=== PATIENT | female | born 1945 | race Caucasian/White ===

== ENCOUNTER 2018-06-04 00:10 | Inpatient (IN) | payer MEDICARE, OTHER ==
[~2018-06-04] VITALS: Ht 170.2 cm; Wt 108.4 kg
[2018-06-04] MEDS ORDERED: ASPIRIN 81 MG CHEW TAB PO STA (00:20)
[2018-06-04] MEDS: METOPROLOL TARTRATE INJ 1 MG/ML VIAL IV SCH ×2 (00:45→01:20)
[2018-06-04 01:06] LABS: BASOPHILS % 0.4 % (0.0-1.0); EOSINOPHILS # (AUTO) 0.3 (0.0-0.4); EOSINOPHILS % 2.7 % (0.0-6.0); HEMATOCRIT 36.4 % (34.2-44.1); HEMOGLOBIN 11.8 g/dL (12.0-16.0); LYMPHOCYTES # (AUTO) 4.6 (1.0-3.2); LYMPHOCYTES % 42.1 % (18.0-39.1); MEAN CORPUSCULAR HEMOGLOBIN 27.6 pg (28-32); MEAN CORPUSCULAR HGB CONC 32.4 g/dL (31-35); MEAN CORPUSCULAR VOLUME 85.2 fL (81-99); MONOCYTES % 9.4 % (4.4-11.3); NEUTROPHILS # (AUTO) 4.9 (2.1-6.9); NEUTROPHILS % 44.9 % (38.7-80.0); PLATELET COUNT 316 x10e3/uL (140-360); RED BLOOD COUNT 4.27 x10e6/uL (3.6-5.1); RED CELL DISTRIBUTION WIDTH 15.3 % (11.7-14.4)
[2018-06-04 01:10] LABS: INR 0.86; PROTHROMBIN TIME 12.5 seconds (11.9-14.5)
[2018-06-04 01:11] LABS: PARTIAL THROMBOPLASTIN TIME 28.4 seconds (23.8-35.5)
[2018-06-04 01:17] LABS: ALANINE AMINOTRANSFERASE 25 IU/L (0-55); ALBUMIN 3.8 g/dL (3.5-5.0); ALBUMIN/GLOBULIN RATIO 1.1 (0.8-2.0); ALKALINE PHOSPHATASE 86 IU/L (40-150); BILIRUBIN,URINE NEGATIVE (NEGATIVE); BLOOD UREA NITROGEN 22 mg/dL (7-26); BUN/CREATININE RATIO 23 (6-25); CALCIUM 12.7 mg/dL (8.4-10.2); CHLORIDE 106 mmol/L (98-107); CLARITY,URINE CLOUDY (CLEAR); COLOR,URINE YELLOW (YELLOW); CREATINE KINASE 72 IU/L (29-168); CREATININE, SERUM 0.97 mg/dL (0.57-1.11); EST GLOMERULAR FILTRATION RATE 57 ML/MIN (60-); GLUCOSE 182 mg/dL (74-118); KETONES,URINE NEGATIVE (NEGATIVE); LEUKOCYTE ESTERASE ,URINE 2+ (NEGATIVE); NITRITE,URINE NEGATIVE (NEGATIVE); PROTEIN,URINE DIPSTICK NEGATIVE (NEGATIVE); SODIUM 139 mmol/L (136-145); URINE UROBILINOGEN 0.2 mg/dL (0.2 - 1)
--- NOTE | 2018-06-04 01:21 | Diagnostic Imaging Report ---
EXAM: CHEST SINGLE (PORTABLE), AP 1 view INDICATION: New A. fib RVR, shortness of breath COMPARISON: None FINDINGS: LINES/TUBES: None LUNGS: No consolidations or edema. PLEURA: No effusions or pneumothorax. HEART AND MEDIASTINUM: Normal size and contour. BONES AND SOFT TISSUES: No acute findings. IMPRESSION: No acute thoracic abnormality. Signed by: Dr. Miriam Parks M.D. on 06/04/2018 1:18 AM
[2018-06-04 01:54] LABS: WBC,URINE (MAN) 21-50 /HPF (0-5)
[2018-06-04 01:55] LABS: BACTERIA,URINE FEW /HPF; EPITHELIAL CELLS,URINE FEW /LPF; MUCUS,URINE FEW (RARE); RENAL EPITHELIAL CELLS,URINE FEW; TRANSITIONAL EPI CELLS,URINE MODERATE
[2018-06-04] MEDS ORDERED: DILTIAZEM HCL 5 MG/ML 5 ML VIAL IV STA (01:55)
[2018-06-04] MEDS ORDERED: DILTIAZEM HCL 100 ML IV SCH (02:00)
[2018-06-04] MEDS ORDERED: ENOXAPARIN SODIUM INJ 100 MG/ML SYR SC SCH (02:00)
[2018-06-04] MEDS ORDERED: SODIUM CHLORIDE 0.9% 500ML 500 ML ONE (02:35)
[2018-06-04] MEDS ORDERED: SODIUM CHLORIDE 0.9% 1000ML 1,000 ML IV ONE (02:45)
[2018-06-04] MEDS ORDERED: DILTIAZEM HCL 30 MG TAB PO ONE (03:00)
[2018-06-04] MEDS ORDERED: DEXTROSE 50% SYRINGE 50 ML IV PRN (03:00)
[2018-06-04] MEDS ORDERED: DILTIAZEM HCL LA 120MG 120 MG CAP PO ONE (03:00)
[2018-06-04] MEDS ORDERED: DILTIAZEM HCL ER 120 MG CAPCR PO ONE (03:01)
[2018-06-04] MEDS ORDERED: SYNTHROID100 MCG PO (03:21)
[2018-06-04] MEDS ORDERED: GLIMEPIRIDE2 MG PO (03:21)
[2018-06-04] MEDS ORDERED: ACETAMINOPHEN325 M1 PO (03:21)
[2018-06-04] MEDS ORDERED: VITAMIN D31000 UNI1 PO (03:21)
[2018-06-04] MEDS ORDERED: CALCIUM ACETAT667 M1 PO (03:21)
[2018-06-04] MEDS ORDERED: VITAMIN B-121000 MCG PO (03:21)
[2018-06-04] MEDS ORDERED: OMEPRAZOLE40 MG PO (03:21)
[2018-06-04] MEDS ORDERED: CO Q-10200 MG PO (03:21)
[2018-06-04] MEDS ORDERED: JANUMET XR 50-1 EAC1 PO (03:21)
[2018-06-04] MEDS ORDERED: PRAVASTATIN SOD40 MG PO (03:21)
[2018-06-04] MEDS ORDERED: LISINOPRIL10 MG PO (03:21)
[2018-06-04] MEDS ORDERED: CARVEDILOL3.125 MG PO (03:21)
[2018-06-04 03:27] LABS: CARBON DIOXIDE 22 mmol/L (22-32)
[2018-06-04] MEDS ORDERED: ACETAMINOPHEN 325 MG TAB PO PRN ×2 (04:00→17:00)
[2018-06-04] MEDS ORDERED: ASPIRIN 81 MG CHEW TAB PO ONE (05:15)
[2018-06-04] MEDS: INSULIN REGULAR, HUMAN 100 UNIT/1 ML 3ML VIAL SQ SCH ×4 (07:30→20:30)
[2018-06-04 09:08] LABS: CREATINE KINASE 56 IU/L (29-168)
[2018-06-04 11:42] VITALS: BP 107/55
--- NOTE | 2018-06-04 13:15 | Consultation ---
DATE OF CONSULTATION: June 04, 2018 CARDIOLOGY CONSULTATION REQUESTING PHYSICIAN: Dr. Florian. REASON FOR CONSULTATION: Atrial fibrillation with rapid ventricular response. HISTORY OF PRESENT ILLNESS: This is a 72-year-old woman with history of diabetes mellitus, mitral valve prolapse and irregular heartbeat, who presented with complaints of palpitations. The patient had her ILR removed approximately one month and a half ago. She was in her usual state of health until last night when she lay down to go to sleep and she began to feel fluttering in her chest. This was associated with shortness of breath. She denied any chest pain, orthopnea or PND but does note she has had a lower extremity edema for the last few months. REVIEW OF SYSTEMS: Negative except as per HPI. PAST MEDICAL HISTORY 1. Diabetes mellitus. 2. Mitral valve prolapse. 3. History of irregular heartbeat. 4. Hypertension. 5. Hypothyroidism. 6. Hyperlipidemia. 7. GERD. PAST SURGICAL HISTORY 1. Appendectomy. 2. Cholecystectomy. 3. Lipoma removal. ALLERGIES 1. PENICILLIN. 2. BACTRIM. MEDICATIONS: Please see medication list. SOCIAL HISTORY: Denies tobacco, alcohol or illicit drugs. FAMILY HISTORY: Pertinent for father and brother with myocardial infarction. PHYSICAL EXAMINATION VITAL SIGNS: Temperature 97.7 degrees, pulse 80, respiratory rate 18, blood pressure 126/74, oxygen saturation 96% on 2 liters nasal cannula. GENERAL: Obese woman in no acute distress. Awake and alert. HEENT: Normocephalic, atraumatic. Pupils equal, no scleral icterus. NECK: Supple. No thyromegaly or cervical lymphadenopathy, no carotid bruits. LUNGS: Clear to auscultation bilaterally. No wheezes or crackles. CARDIOVASCULAR: Normal rate, regular rhythm. No murmur. Normal S1 and S2. ABDOMEN: Soft, nontender. EXTREMITIES: No edema. NEURO: Nonfocal exam. LABS AND DIAGNOSTICS: WBC 10.94, hemoglobin 11.8, hematocrit 36.4, platelets 316. Sodium 139, potassium 5, chloride 106, CO2 22, BUN 22, creatinine 0.97. Troponin less than 0.001. BNP 5.9. TSH 3.105. Chest x-ray: No acute thoracic abnormality. Urinalysis: 2+ leukocyte esterase, 6-10 RBCs, 21-50 WBCs. Urine culture: Pending. ELECTROCARDIOGRAM NUMBER 1: Atrial fibrillation with rapid ventricular response, nonspecific ST-T wave abnormality. ELECTROCARDIOGRAM NUMBER 2: After administration of diltiazem drip, sinus rhythm with 1st-degree AV block. IMPRESSION 1. Atrial fibrillation with rapid ventricular response. 2. Diabetes mellitus. 3. Hypertension. 4. Hyperlipidemia. 5. Mitral valve prolapse. 6. History of irregular heartbeat. RECOMMENDATIONS: Patient was on 3.125 mg p.o. b.i.d. of carvedilol at home. We will discontinue this and replace with metoprolol succinate. Discussion was held regarding vitamin K antagonist versus NOAC including risks and benefits of each. Patient will be discharged on Eliquis 5 mg p.o. b.i.d. An echocardiogram has been done. We will review the images. Likely discharge home later today to follow up with patient's outpatient electric dolly operator, Dr. Giron, and outpatient service desk technician, Dr. Estevez. Job#: [id number] MAUREEN
[2018-06-04 16:28] VITALS: BP 103/60
[2018-06-04] MEDS: METOPROLOL TARTRATE 50 MG TAB PO SCH (17:00)
[2018-06-04] MEDS: GLIMEPIRIDE 2 MG TAB PO SCH (17:00)
[2018-06-04] MEDS: APIXABAN 5 MG TABLET PO SCH (17:00)
--- NOTE | 2018-06-04 17:14 | History and Physical ---
The patient is in observation. CHIEF COMPLAINT: Atrial fibrillation with rapid ventricular rate response. HISTORY OF PRESENT ILLNESS: Patient is a 72-year-old female with atrial fibrillation with rapid ventricular response. The patient had an event monitor for over 2 months. It did not show any arrhythmia. Apparently, she just recently got off of the event monitor and now came in with significant heart rate elevation. The patient has a history of diabetes, type 2, on oral hypoglycemic medication. She also has mitral valve prolapse and previous thought to be irregular heartbeat. The patient now is with atrial fibrillation. She was just initiated on treatment with Coreg increasing the doses and then Eliquis. The patient is otherwise stable. Heart rate in normal sinus rhythm now and on monitoring. PAST MEDICAL HISTORY 1. Diabetes, type 2, on oral hypoglycemic medication. 2. Mitral valve prolapse. 3. History of recurrent irregular heartbeat. 4. Hypertension. 5. Dyslipidemia. 6. Reflux. 7. Hypothyroidism. PAST SURGICAL HISTORY 1. Appendectomy. 2. Cholecystectomy. 3. Lipoma removal. SOCIAL HISTORY: Patient does not smoke or use alcohol. She lives with her family. ALLERGIES: PENICILLIN, BACTRIM. HOME MEDICATIONS: List is reviewed. Patient is on Tylenol, calcium, vitamin D3, B12, Amaryl, levothyroxine, lisinopril, omeprazole, pravastatin, Janumet, CoQ10. REVIEW OF SYSTEMS: Palpitations previously but now stable. No shortness of systems. No chest pain. No abdominal pain. PHYSICAL EXAMINATION GENERAL: Patient is in no acute distress. She is awake. VITAL SIGNS: Temperature is 96. Blood pressure 103/60. Pulse rate 75. Respirations 18. HEENT: Normocephalic, atraumatic. Anicteric. NECK: Supple grossly. PULMONARY: Diminished breath sounds without any wheezing or rales. CARDIOVASCULAR: Regular rate and rhythm. ABDOMEN: Soft. Positive bowel sounds. Grossly nontender and nondistended. EXTREMITIES: No gross cyanosis or edema. NEUROLOGIC: No gross focal deficit. LABORATORY: Sodium is 139, potassium 5, chloride 106, bicarb 22. BUN 22 and creatinine 0.9. Glucose 180. WBC is 10.9, hemoglobin 11.8, hematocrit 36.4, platelets 316. Liver enzymes are unremarkable. IMAGING: Chest x-ray is unremarkable. IMPRESSION 1. Atrial fibrillation with rapid ventricular rate response. 2. Multiple chronic baseline problems. PLAN: Continue with rate controlling medication. The patient is now in normal sinus rhythm. Start the patient on Eliquis. Will monitor the patient closely at this time. Job#: [id number]
[2018-06-04 17:36] LABS: CREATINE KINASE 65 IU/L (29-168)
[2018-06-04 20:00] VITALS: BP 117/83
[2018-06-04 20:30] VITALS: BP 117/83
[2018-06-04] MEDS ORDERED: SIMVASTATIN 20 MG TAB PO SCH (21:00)
[2018-06-05] VITALS: BP 136/73
[2018-06-05 04:00] VITALS: BP 113/69
[2018-06-05] MEDS ORDERED: LEVOTHYROXINE SODIUM 100 MCG TAB PO SCH (06:00)
[2018-06-05 06:15] LABS: BASOPHILS % 0.4 % (0.0-1.0); EOSINOPHILS # (AUTO) 0.3 (0.0-0.4); EOSINOPHILS % 3.5 % (0.0-6.0); HEMOGLOBIN 10.9 g/dL (12.0-16.0); LYMPHOCYTES # (AUTO) 3.4 (1.0-3.2); LYMPHOCYTES % 41.9 % (18.0-39.1); MEAN CORPUSCULAR HEMOGLOBIN 27.3 pg (28-32); MEAN CORPUSCULAR HGB CONC 32.1 g/dL (31-35); MONOCYTES # (AUTO) 0.8 (0.2-0.8); MONOCYTES % 9.5 % (4.4-11.3); NEUTROPHILS # (AUTO) 3.5 (2.1-6.9); NEUTROPHILS % 44.2 % (38.7-80.0); PLATELET COUNT 280 x10e3/uL (140-360); RED CELL DISTRIBUTION WIDTH 15.1 % (11.7-14.4)
[2018-06-05 06:38] LABS: ALANINE AMINOTRANSFERASE 24 IU/L (0-55); ALBUMIN 3.7 g/dL (3.5-5.0); ALBUMIN/GLOBULIN RATIO 1.4 (0.8-2.0); ALKALINE PHOSPHATASE 69 IU/L (40-150); ANION GAP 15.2 mmol/L (8-16); BLOOD UREA NITROGEN 14 mg/dL (7-26); BUN/CREATININE RATIO 19 (6-25); CALCIUM 9.4 mg/dL (8.4-10.2); CARBON DIOXIDE 24 mmol/L (22-29); CHLORIDE 105 mmol/L (98-107); CHOL/HDL RATIO 3.3 (3.0-3.6); CHOLESTEROL 157 MD/DL (0-199); CREATININE, SERUM 0.75 mg/dL (0.57-1.11); EST GLOMERULAR FILTRATION RATE > 60 ML/MIN (60-); GLUCOSE 133 mg/dL (74-118); HDL CHOLESTEROL 47 MG/DL (40-60); LDL CHOLESTEROL 75 MG/DL (60-130); POTASSIUM 4.2 mmol/L (3.5-5.1); SODIUM 140 mmol/L (136-145); TRIGLYCERIDES 174 MG/DL (0-149)
[2018-06-05 07:15] VITALS: BP 123/59
[2018-06-05] MEDS: INSULIN REGULAR, HUMAN 100 UNIT/1 ML 3ML VIAL SQ SCH (07:30)
[2018-06-05 07:57] VITALS: BP 123/59
[2018-06-05] MEDS: GLIMEPIRIDE 2 MG TAB PO SCH (08:00)
[2018-06-05] MEDS ORDERED: PANTOPRAZOLE SOD 40 MG TABEC PO SCH (09:00)
[2018-06-05] MEDS: METOPROLOL TARTRATE 50 MG TAB PO SCH (09:00)
[2018-06-05] MEDS ORDERED: CYANOCOBALAMIN 1,000 MCG TAB PO SCH (09:00)
[2018-06-05] MEDS: APIXABAN 5 MG TABLET PO SCH (09:17)
[2018-06-05] MEDS ORDERED: METOPROLOL SUCC50 MG PO (10:18)
--- NOTE | 2018-06-05 12:15 | Discharge Summary ---
Patient on observation. FINAL DIAGNOSES: 1. Paroxysmal atrial fibrillation with rapid ventricular rate response, now stabilized. 2. Anticoagulant therapy. SUMMARY: This is a 72-year-old female with rapid heart rate, atrial fibrillation. The patient was started on metoprolol 50 mg twice a day. The patient is stable. Heart rate now in the 70s-80s. The patient was started on Eliquis 5 mg twice a day. Echocardiogram showed ejection fraction of 55%. The patient is otherwise stable. She will go home today. She will follow up with her leather cartridge belt maker within a week. The patient is stable to discharge home in a stable condition. Job#: [id number] EV
--- OUTSIDE RECORDS SUMMARY | 2018-06-11 12:10 | XMS REPORT | Clinical Summary ---
Author Author GINNA LollipuffBear Lake Memorial HospitalArt of ClickUniversity of [facility] for Medical SciencesClean Air PowerUniversal Health Services Address Unknown Phone Unavailable Care Team Providers Care Air Brake Adjuster Name Role Phone PCP Unavailable Allergies Active Allergy Reactions Severity Noted Date Comments Penicillins 07/03/2016 Current Medications Prescription Sig. Disp. Refills Start End Date Status Date carvedilol (COREG) 3.125 Take 3.125 mg by mouth 2 Active MG tablet (two) times daily with breakfast and dinner. SITagliptin-metFORMIN Take 1 tablet by mouth 2 Active (JANUMET) 50-1,000 mg per (two) times daily with tablet breakfast and dinner. lisinopril Take 20 mg by mouth Active (PRINIVIL,ZESTRIL) 20 MG daily. tablet omeprazole (PRILOSEC) 40 Take 40 mg by mouth Active MG capsule daily. pravastatin (PRAVACHOL) Take 40 mg by mouth Active 40 MG tablet daily. levothyroxine (SYNTHROID, Take 100 mcg by mouth Active LEVOTHROID) 100 MCG Every morning on an empty tablet stomach. acetaminophen (TYLENOL) Take 500 mg by mouth Active 500 MG tablet every 6 (six) hours as needed for Pain. mINOCYCLine Take 1 capsule (100 mg 14 capsule 0 05/03/20 05/10/20 (MINOCIN,DYNACIN) 100 MG total) by mouth 2 (two) 18 18 capsule times daily for 7 days. Active Problems Problem Noted Date History of loop recorder 05/03/2018 Encounters Date Type Specialty Care Team Description 05/03/2018 Hospital Derek Estevez MD History of loop recorder Encounter 05/03/2018 Procedure Pass 05/03/2018 Surgery Derek Estevez MD SUBCUTANEOUS IMPLANTABLE LOOP RECORDER REMOVAL (EVENT RECORDER) after 06/03/2017 Social History Tobacco Use Types Packs/Day Years Used Date Never Smoker Smokeless Tobacco: Never Used Alcohol Use Drinks/Week oz/Week Comments No Sex Assigned at Date Recorded Not on file Last Filed Vital Signs Vital Sign Reading Time Taken Blood Pressure 128/68 05/03/2018 12:06 PM CDT Pulse 74 05/03/2018 12:06 PM CDT Temperature 36.4 C (97.6 F) 05/03/2018 9:21 AM CDT Respiratory Rate 16 05/03/2018 12:06 PM CDT Oxygen Saturation 98% 05/03/2018 11:56 AM CDT Inhaled Oxygen - - Concentration Weight 100.8 kg (222 lb 3.2 oz) 05/03/2018 9:21 AM CDT Height 179.1 cm (5' 10.5") 05/03/2018 9:21 AM CDT Body Mass Index 31.43 05/03/2018 9:21 AM CDT Plan of Treatment Not on file Procedures Procedure Name Priority Date/Time Associated Diagnosis Comments SUBCUTANEOUS IMPLANTABLE 05/03/2018 Encounter for adjustment LOOP RECORDER REMOVAL 9:42 AM CDT and management of other (EVENT RECORDER) cardiac device Case Notes POP6 TO FOLLOW after 06/03/2017 Results * CARDIAC CATH REPORT - SCAN (05/06/2018 3:00 PM) * CBC with platelet count + automated diff (05/03/2018 10:16 AM) Component Value Ref Range WBC 8.0 3.5 - 10.5 K/L RBC 4.32 3.93 - 5.22 M/L Hemoglobin 11.5 11.2 - 15.7 GM/DL Hematocrit 37.3 34.1 - 44.9 % MCV 86.3 79.4 - 94.8 fL MCH 26.6 25.6 - 32.2 pg MCHC 30.8 (L) 32.2 - 35.5 GM/DL RDW 15.2 (H) 11.7 - 14.4 % Platelets 271 150 - 450 K/CU MM MPV 10.3 9.4 - 12.3 fL nRBC 0 0 - 0 /100 WBC % Neutros 54 % % Lymphs 34 % % Monos 9 % % Eos 2 % % Baso 1 % # Neutros 4.30 1.56 - 6.13 K/L # Lymphs 2.71 1.18 - 3.74 K/L # Monos 0.74 (H) 0.24 - 0.36 K/L # Eos 0.18 0.04 - 0.36 K/L # Baso 0.04 0.01 - 0.08 K/L Immature 1 0 - 1 % Granulocytes-Relative Specimen [place]forming [place] [address] * CBC with platelet count + automated diff (05/03/2018 10:16 AM) Specimen Performing Laboratory Blood Narrative The following orders were created for panel order CBC with platelet count + automated diff. Procedure Abnormality Status --------- ------ CBC with platelet count ...[[id number]]AbnormalFinal result Please view results for these tests on the individual orders. * Basic Metabolic Panel (05/03/2018 10:16 AM) Component Value Ref Range Sodium 134 (L) 136 - 145 meq/L Potassium 4.4 3.5 - 5.1 meq/L Chloride 103 98 - 107 meq/L CO2 22 22 - 29 meq/L BUN 21 7 - 21 mg/dL Creatinine 0.83 0.57 - 1.25 mg/dL Glucose 132 (H) 70 - 105 mg/dL Calcium 9.3 8.4 - 10.2 mg/dL EGFR 68Comment: ESTIMATED GFR IS NOT ACCURATE mL/min/1.73 sq m CREATININE CLEARANCE IN PREDICTING GLOMERULAR FILTRATION RATE. ESTIMATED GFR IS NOT APPLICABLE FOR DIALYSIS PATIENTS. Specimen Performing Laboratory Blood [address] [address] after 06/03/2017
--- OUTSIDE RECORDS SUMMARY | 2018-06-11 12:10 | XMS REPORT ---
Author Author [facility] Address Unknown Phone Unavailable Care Team Providers Care Legal Researcher Name Role Phone Faizan FERRERA Unavailable Unavailable MADISON ORTIZ Unavailable Unavailable Problems This patient has no known problems. Allergies, Adverse Reactions, Alerts This patient has no known allergies or adverse reactions. Medications This patient has no known medications. Results Test Description Test Time Test Comments Text Results Atomic Results Result Comments CHEST SINGLE (PORTABLE) 2018-06-04 01:05:00 [place] [address] Patient Name: KELLEY SHAVER MR #: [id number] : 1945 Age/Sex: 72/F Req #: [id number] Adm Physician: Ordered by: CARLOZ FERRERA MD Report #: [id number] Location: ER Room/Bed: Procedure: [id number] DX/CHEST SINGLE (PORTABLE) Exam Date: 06/04/18 Exam Time: 0045 REPORT STATUS: Signed EXAM: CHEST SINGLE (PORTABLE), AP 1 view INDICATION: New A. fib RVR, shortness of breath COMPARISON: None FINDINGS: LINES/TUBES: None LUNGS: No consolidations or edema. PLEURA: No effusions or pneumothorax. HEART AND MEDIASTINUM: Normal size and contour. BONES AND SOFT TISSUES: No acute findings. IMPRESSION: No acute thoracic abnormality. Signed by: Dr. Sonja Parks M.D. on 06/04/2018 1:18 AM Dictated By: SONJA PARKS MD 7 Transcribed By: BONILLA on 06/04/18117 COPY TO: CARLOZ FERRERA MD BASIC METABOLIC PANEL 2018-05-03 10:43:00 SODIUM (BEAKER) (test xfsi=783) 134 meq/L 136-145 POTASSIUM (BEAKER) (test gomz=724) 4.4 meq/L 3.5-5.1 CHLORIDE (BEAKER) (test nsgi=048) 103 meq/L 98-107 CO2 (BEAKER) (test uagu=226) 22 meq/L 22-29 BLOOD UREA NITROGEN (BEAKER) (test mbcn=661) 21 mg/dL 7-21 CREATININE (BEAKER) (test tdgy=091) 0.83 mg/dL 0.57-1.25 GLUCOSE RANDOM (BEAKER) (test zllv=981) 132 mg/dL 70-105 CALCIUM (BEAKER) (test hwcf=072) 9.3 mg/dL 8.4-10.2 EGFR (BEAKER) (test clvl=8499) 68 mL/min/1.73 sq m ESTIMATED GFR IS NOT ACCURATE CREATININE CLEARANCE IN PREDICTING GLOMERULAR FILTRATION RATE. ESTIMATED GFR IS NOT APPLICABLE FOR DIALYSIS PATIENTS. CBC W/PLT COUNT & AUTO [id number] 10:25:00* Test Item Value Reference Range Comments WHITE BLOOD CELL COUNT (BEAKER) (test cvqk=077) 8.0 K/ L 3.5-10.5 RED BLOOD CELL COUNT (BEAKER) (test nrvh=983) 4.32 M/ L 3.93-5.22 HEMOGLOBIN (BEAKER) (test eixu=220) 11.5 GM/DL 11.2-15.7 HEMATOCRIT (BEAKER) (test pcmr=855) 37.3 % 34.1-44.9 MEAN CORPUSCULAR VOLUME (BEAKER) (test qkml=944) 86.3 fL 79.4-94.8 MEAN CORPUSCULAR HEMOGLOBIN (BEAKER) (test pgzj=490) 26.6 pg 25.6-32.2 MEAN CORPUSCULAR HEMOGLOBIN CONC (BEAKER) (test echb=702) 30.8 GM/DL 32.2-35.5 RED CELL DISTRIBUTION WIDTH (BEAKER) (test tlzu=098) 15.2 % 11.7-14.4 PLATELET COUNT (BEAKER) (test ulsd=785) 271 K/CU MM 150-450 MEAN PLATELET VOLUME (BEAKER) (test dmtj=011) 10.3 fL 9.4-12.3 NUCLEATED RED BLOOD CELLS (BEAKER) (test femp=721) 0 /100 WBC 0-0 NEUTROPHILS RELATIVE PERCENT (BEAKER) (test ssau=149) 54 % LYMPHOCYTES RELATIVE PERCENT (BEAKER) (test tpyn=394) 34 % MONOCYTES RELATIVE PERCENT (BEAKER) (test ajvz=151) 9 % EOSINOPHILS RELATIVE PERCENT (BEAKER) (test cvgy=605) 2 % BASOPHILS RELATIVE PERCENT (BEAKER) (test sulp=907) 1 % NEUTROPHILS ABSOLUTE COUNT (BEAKER) (test bbfd=834) 4.30 K/ L 1.56-6.13 LYMPHOCYTES ABSOLUTE COUNT (BEAKER) (test nzuh=267) 2.71 K/ L 1.18-3.74 MONOCYTES ABSOLUTE COUNT (BEAKER) (test hkkn=719) 0.74 K/ L 0.24-0.36 EOSINOPHILS ABSOLUTE COUNT (BEAKER) (test edfg=553) 0.18 K/ L 0.04-0.36 BASOPHILS ABSOLUTE COUNT (BEAKER) (test lyes=548) 0.04 K/ L 0.01-0.08 IMMATURE GRANULOCYTES-RELATIVE PERCENT (BEAKER) (test bmgy=4907) 1 % 0-1
== END 2018-06-05 10:32 | disposition home or self-care (01) | DRG 310 ==
LOC: ER 00:10 → ERHOLD 03:08 → MED/SURG3 10:00
PROVIDERS: ADMIT Internal Medicine; ATTEND Internal Medicine
DX: I48.0 Paroxysmal atrial fibrillation (principal); E11.9 Type 2 diabetes mellitus without complications; E03.9 Hypothyroidism, unspecified; E78.5 Hyperlipidemia, unspecified; K21.9 Gastro-esophageal reflux disease without esophagitis; I34.1 Nonrheumatic mitral (valve) prolapse; Z79.52 Long term (current) use of systemic steroids; Z88.0 Allergy status to penicillin; Z79.4 Long term (current) use of insulin; E66.9 Obesity, unspecified; Z68.37 Body mass index [BMI] 37.0-37.9, adult
CPT/HCPCS: 36415; 71045; 80053; 80061; 81001; 82550; 82553; 82948; 83735; 83880; 84443; 84484; 85025; 85610; 85730; 87086; 93005; 93306; 99284; J1650; J7030; J7040